=== PATIENT | female | born 1950 | race Caucasian/White ===

== ENCOUNTER 2018-04-01 22:21 | Inpatient (IN) | payer MEDICARE ==
[~2018-04-01] VITALS: Ht 160 cm; Wt 79.4 kg
[2018-04-01 22:21] VITALS: Ht 160 cm; Wt 79.4 kg
[2018-04-01 22:48] VITALS: BP 137/40
[2018-04-01 23:24] LABS: BASOPHIL % 0.2 % (0-2); PLATELET COUNT 213 x10^3mcL (130-400)
[2018-04-01 23:27] LABS: RED CELL DISTRIBUTION WIDTH 16.4 % (11.5-14.5)
[2018-04-01 23:39] LABS: BILIRUBIN TOTAL 1.22 mg/dL (0.20-1.00); CALCIUM 10.3 mg/dL (8.5-10.1); CARBON DIOXIDE 18.4 mmol/L (21-32); CREATININE SERUM 2.9 mg/dL (0.6-1.0); TOTAL PROTEIN, SERUM 6.3 g/dL (6.4-8.2)
[2018-04-01 23:43] LABS: ALBUMIN 2.3 g/dL (3.4-5.0)
[2018-04-01 23:46] LABS: POTASSIUM SERUM 7.6 mmol/L (3.5-5.1)
[2018-04-02] VITALS (11 sets, daily range): BP systolic 36–118; BP diastolic 22–83
[2018-04-02] MEDS ORDERED: DIGOX0.125 MG (01:33)
[2018-04-02 02:22] LABS: MAGNESIUM 2.2 mg/dL (1.8-2.4)
[2018-04-02 02:42] LABS: PHOSPHOROUS 9.9 mg/dL (2.5-4.9)
[2018-04-02 04:21] LABS: UA SPECIFIC GRAVITY >=1.030 (1.005-1.035); microscopic required? YES; urine erythrocyte NEGATIVE (NEGATIVE)
[2018-04-02 04:29] LABS: AMPHETAMINE QUAL UR NONE DETECTED (See below)
[2018-04-02 05:39] LABS: BASOPHIL % 0.2 % (0-2); PLATELET COUNT 270 x10^3mcL (130-400)
[2018-04-02 05:48] LABS: CALCIUM 9.4 mg/dL (8.5-10.1); CARBON DIOXIDE 17.2 mmol/L (21-32); CREATININE SERUM 3.1 mg/dL (0.6-1.0); MAGNESIUM 1.8 mg/dL (1.8-2.4)
[2018-04-02 06:02] LABS: RED CELL DISTRIBUTION WIDTH 16.2 % (11.5-14.5)
[2018-04-02 06:07] LABS: POTASSIUM SERUM 6.3 mmol/L (3.5-5.1)
[2018-04-02] MEDS ORDERED: LIPI20 PO (06:15)
[2018-04-02] MEDS ORDERED: LOT20 PO (06:15)
[2018-04-02] MEDS ORDERED: CITALOPRAM HYDR20 M1 PO (06:16)
[2018-04-02] MEDS ORDERED: DILTIAZEM CD180 MG PO (06:16)
[2018-04-02] MEDS ORDERED: DIGOXIN0.125 M1 PO (06:16)
[2018-04-02] MEDS ORDERED: GLU10XL PO (06:17)
[2018-04-02] MEDS ORDERED: METFORMIN HYDR500 M1 PO (06:17)
[2018-04-02] MEDS ORDERED: FENOFIBRATE145 M1 PO (06:17)
[2018-04-02] MEDS ORDERED: LOP100 PO (06:19)
[2018-04-02] MEDS ORDERED: TRAMADOL HCL50 MG PO (06:19)
[2018-04-02] MEDS ORDERED: COUMADIN4 MG PO (06:20)
[2018-04-02] MEDS ORDERED: COUMADIN10 MG PO (06:21)
[2018-04-02] MEDS ORDERED: LOPERAMIDE HCL2 MG PO (06:21)
[2018-04-02] MEDS ORDERED: ZOF4 PO (06:22)
== END 2018-04-02 13:02 | disposition expired | DRG 208 ==
LOC: ED 22:21 → IC 04-02 00:40
PROVIDERS: Emergency Medicine; Internal Medicine
PROC: 5A1935Z Respiratory Ventilation, Less than 24 Consecutive Hours (ICD-10-PCS; principal; 2018-04-02)
PROC: 0BH17EZ Insertion of Endotracheal Airway into Trachea, Via Natural or Artificial Opening (ICD-10-PCS; 2018-04-02)
PROC: 5A12012 Performance of Cardiac Output, Single, Manual (ICD-10-PCS; 2018-04-02)
DX: J96.01 Acute respiratory failure with hypoxia (principal); N17.0 Acute kidney failure with tubular necrosis; E43 Unspecified severe protein-calorie malnutrition; G92 Toxic encephalopathy; E87.1 Hypo-osmolality and hyponatremia; C79.51 Secondary malignant neoplasm of bone; C78.7 Secondary malignant neoplasm of liver and intrahepatic bile duct; C50.919 Malignant neoplasm of unspecified site of unspecified female breast; I95.9 Hypotension, unspecified; R00.1 Bradycardia, unspecified; R57.0 Cardiogenic shock; E87.5 Hyperkalemia; E11.65 Type 2 diabetes mellitus with hyperglycemia; E83.39 Other disorders of phosphorus metabolism; E83.52 Hypercalcemia; R74.0 Nonspecific elevation of levels of transaminase and lactic acid dehydrogenase [LDH]; Z68.24 Body mass index [BMI] 24.0-24.9, adult; Z53.29 Procedure and treatment not carried out because of patient's decision for other reasons
CPT/HCPCS: 82962; 83880; A4628; J1162; J1200; J1265; J1815; J2543; J3490; J7030; Q0092